=== PATIENT | male | born 1950 | race Caucasian/White ===

== ENCOUNTER 2017-02-11 07:43 | Inpatient (IN) | payer BC ==
[~2017-02-11] VITALS: Ht 182.9 cm; Wt 84.4 kg
[~2017-02-11 07:43] MED LIST: ASPI-1159 PO; METO25TA6 PO; OXYC-100 PO; ROSU20TA PO
[2017-02-11] MEDS ORDERED: SODIUM CHLORIDE 0.9% 1,000 ML IV SCH (08:45)
[2017-02-11] MEDS ORDERED: BACITRACIN 50,000 UNITS/VIAL ONE (09:37)
[2017-02-11] MEDS ORDERED: NORMAL SALINE 0.9% 10 ML SYR ONE (09:38)
[2017-02-11 13:47] VITALS: BP 118/74
[2017-02-11] MEDS ORDERED: ACETAMINOPHEN 325MG TABLET PO PRN ×2 (14:00→14:45)
[2017-02-11] MEDS ORDERED: MAGNESIUM/ALUMINUM HYDROXIDE/SIMETHICONE 30ML UDC PO PRN (14:00)
[2017-02-11] MEDS ORDERED: IPRATROPIUM/ALBUTEROL 0.5-3(2.5)MG/3ML NEB INH PRN (14:00)
[2017-02-11] MEDS ORDERED: ONDANSETRON HCL 4MG/2ML VIAL IV PRN ×2 (14:00→14:45)
[2017-02-11] MEDS ORDERED: DOCUSATE SODIUM 100MG CAPSULE PO PRN (14:00)
[2017-02-11 14:41] VITALS: BP 134/58
[2017-02-11] MEDS ORDERED: OXYCODONE HCL/ACETAMINOPHEN 5/325MG TABLET PO PRN (14:45)
[2017-02-11] MEDS ORDERED: MORPHINE SULFATE 2 MG/ML CPJ (NOT FOR IM USE) IV PRN (14:45)
[2017-02-11] MEDS: HYDROCODONE/ACETAMINOPHEN 5/325MG TABLET PO PRN ×2 (15:35→20:38)
[2017-02-11] MEDS: OMEPRAZOLE 20MG CAPSULE EXTENDED RELEASE PO SCH (15:36)
[2017-02-11] MEDS: DEXT 5%/0.45% NACL 1000ML 1,000 ML IV SCH (15:55)
[2017-02-11 16:00] VITALS: BP 101/56
[2017-02-11 18:02] VITALS: BP 123/72
[2017-02-11 20:00] VITALS: BP 98/60
[2017-02-11] MEDS: METOPROLOL TARTRATE 25MG TABLET PO SCH (20:39)
[2017-02-11] MEDS ORDERED: ATORVASTATIN CALCIUM 10MG TABLET PO SCH (21:00)
[2017-02-11] MEDS ORDERED: ZOLPIDEM TARTRATE 5MG TABLET PO PRN (21:00)
[2017-02-11] MEDS: CLINDAMYCIN HCL 150MG CAPSULE PO SCH (21:51)
[2017-02-11] MEDS: AMOXICILLIN/POTASSIUM CLAVULANATE 500/125MG TAB PO SCH (21:52)
[2017-02-11 22:00] VITALS: BP 104/58
[2017-02-12] VITALS (8 sets, daily range): BP systolic 92–112; BP diastolic 53–67
[2017-02-12] MEDS: CLINDAMYCIN HCL 150MG CAPSULE PO SCH (06:28)
[2017-02-12] MEDS: AMOXICILLIN/POTASSIUM CLAVULANATE 500/125MG TAB PO SCH (06:28)
[2017-02-12] MEDS: OMEPRAZOLE 20MG CAPSULE EXTENDED RELEASE PO SCH (06:28)
[2017-02-12] MEDS: HYDROCODONE/ACETAMINOPHEN 5/325MG TABLET PO PRN (06:40)
[2017-02-12 07:18] LABS: BASOPHILS % 0.3 % (0.0-2.0); EOSINOPHILS % 0.2 % (0.0-5.0); HEMATOCRIT. 39.9 % (42.0-52.0); HEMOGLOBIN. 13.9 g/dL (14.0-18.0); LYMPHOCYTES % 9.9 % (20.0-50.0); MEAN CORPUSCULAR HEMOGLOBIN 29.5 pg (28.0-32.0); MEAN CORPUSCULAR VOLUME 84.4 fL (80.0-94.0); MEAN PLATELET VOLUME 9.4 fl (7.4-10.4); MONOCYTES % 8.4 % (2.0-8.0); NEUTROPHILS % 81.2 % (40.0-76.0); PLATELET 154 x1000/uL (130-400); RED BLOOD CELL COUNT 4.73 mill/uL (4.7-6.1); RED CELL DISTRIBUTION WIDTH 15.7 % (11.6-14.6)
[2017-02-12] MEDS: DEXT 5%/0.45% NACL 1000ML 1,000 ML IV SCH (07:25)
[2017-02-12 08:03] LABS: CARBON DIOXIDE 24 mEq/L (21-32); CHLORIDE 107 mEq/L (98-107)
[2017-02-12] MEDS ORDERED: ASPIRIN 81MG TABLET PO SCH (09:00)
[2017-02-12] MEDS: METOPROLOL TARTRATE 25MG TABLET PO SCH (09:15)
[2017-02-12] MEDS ORDERED: ATORVASTATIN CALCIUM 20MG TABLET PO SCH (14:50)
[2017-02-13] MEDS ORDERED: FAMOTIDINE 20MG TABLET PO SCH (09:00)
== END 2017-02-12 13:15 | disposition home or self-care (01) | DRG 858 ==
LOC: OR 07:43 → 3WST 07:44
PROVIDERS: ADMIT Thoracic Surgery (Cardiothoracic Vascular Surgery); ATTEND Thoracic Surgery (Cardiothoracic Vascular Surgery)
PROC: 0WB80ZZ Excision of Chest Wall, Open Approach (ICD-10-PCS; 2017-02-11)
PROC: 0PC00ZZ Extirpation of Matter from Sternum, Open Approach (ICD-10-PCS; principal; 2017-02-11 10:00)
DX: T81.4XXA Infection following a procedure, initial encounter (principal); E78.5 Hyperlipidemia, unspecified; I25.10 Atherosclerotic heart disease of native coronary artery without angina pectoris; Z95.1 Presence of aortocoronary bypass graft; Z87.891 Personal history of nicotine dependence; Z90.49 Acquired absence of other specified parts of digestive tract; Z88.4 Allergy status to anesthetic agent; Z88.8 Allergy status to other drugs, medicaments and biological substances; Y83.8 Other surgical procedures as the cause of abnormal reaction of the patient, or of later complication, without mention of misadventure at the time of the procedure; Y92.89 Other specified places as the place of occurrence of the external cause
CPT/HCPCS: 36415; 71010; 80048; 83735; 85025; 85651; 86140; 86850; 86900; 86920; 87070; 87075; 87077; 87186; 87205; 93970; A4216; J3490; J7030; J7042